=== PATIENT | female | born 1935 | race Caucasian/White ===

== ENCOUNTER 2017-01-27 15:05 | Inpatient (IN) | payer OTHER ==
[~2017-01-27] VITALS: Ht 160 cm; Wt 51.8 kg
[~2017-01-27 15:05] MED LIST: AMLODIPINE-BEN1 EAC4 PO; ASCORBIC ACID500 M3 PO; ASPIR-LOW81 MG PO; ATIVAN0.5 MG PO; Ascorbic Acid,Ester- PO; BACITRACIN28.4 GM TP; CARVEDILOL25 MG PO; Colace PO; DAILY VALUE1 EACH PO; Dulcolax PO; FUROSEMIDE20 MG PO; Folvite PO; KLOR-CON M2020 MEQ PO; LEVAQUIN250 MG PO; LISINOPRIL40 MG PO; Lopressor PO; MULTIVITAMIN1 EAC2 PO; NATURAL CALCIUM PO; Oscal 500 w/Vitamin PO; PANTOPRAZOLE SO40 MG PO; Phenergan PO; Protonix PO; Reglan PO; SKELAXIN800 MG PO; SYSTANE 0.3-0.1 EACH BOTH EYES; Senokot,Sennagen PO; Slow-Mag,Mag Delay PO; THERAGRAN1 TABLET PO; Tylenol Regular Stre PO; ULTRAM50 MG PO; VALSARTAN160 MG PO; Vicodin,Norco 5/325 PO; Zestril,Prinivil PO
[2017-01-27] MEDS ORDERED: DOXYCYCLINE HY100 MG PO ×2 (16:08→19:44)
[2017-01-27] MEDS ORDERED: BENZONATATE200 MG PO (16:09)
[2017-01-27 16:25] LABS: HEMATOCRIT 33.9 % (36.0-46.0); MCH 29.9 PG (29.0-34.0); MCHC 33.9 G/DL (30.0-36.0); MCV 88.1 FL (83-99); MEAN PLAT.VOLUME 11.8 uM^3 (9.5-12.4); PLATELET COUNT 135 K/uL (156-360); RBC DIS.WIDTH-CV 12.6 % (11.8-14.6); RBC DIS.WIDTH-SD 39.6 % (39-53); RED BLOOD COUNT 3.85 M/uL (3.80-5.20); WHITE BLOOD COUNT 5.4 K/uL (4.1-10.2)
[2017-01-27 16:33] LABS: CHLORIDE 93 mEq/L (99-109); POTASSIUM 3.8 mEq/L (3.7-5.4); SODIUM 126 mEq/L (136-147)
[2017-01-27 16:34] LABS: GLUCOSE 120 mg/dL (70-99)
[2017-01-27 16:36] LABS: ANION GAP 9 MEQ/L (2-14)
[2017-01-27 16:38] LABS: GFR ESTIMATE (CALCULATED) > 59 mL/min/
[2017-01-27 16:39] LABS: UREA NITROGEN (BUN) 12 mg/dL (9-23)
[2017-01-27 20:20] VITALS: BP 155/74
[2017-01-27 23:44] VITALS: BP 128/60
[2017-01-28 00:45] VITALS: BP 128/60
[2017-01-28 04:02] VITALS: BP 129/65
[2017-01-28 07:13] LABS: HEMATOCRIT 33.4 % (36.0-46.0); MCH 30.3 PG (29.0-34.0); MCHC 34.4 G/DL (30.0-36.0); MCV 87.9 FL (83-99); MEAN PLAT.VOLUME 12.1 uM^3 (9.5-12.4); PLATELET COUNT 139 K/uL (156-360); RBC DIS.WIDTH-CV 13.1 % (11.8-14.6); RBC DIS.WIDTH-SD 42.5 % (39-53); WHITE BLOOD COUNT 4.7 K/uL (4.1-10.2)
[2017-01-28 07:33] LABS: EOSINOPHIL (%) 0.2 % (0-5); LYMPHOCYTE COUNT 0.4 K/uL (1.0-2.8); MONOCYTE (%) 14.1 % (3-12); MONOCYTE COUNT 0.7 K/uL (0-0.8); NEUTROPHIL (%) 77.8 % (45-76); NEUTROPHIL COUNT 3.6 K/uL (1.8-6.4)
[2017-01-28 07:37] LABS: ANION GAP 8 MEQ/L (2-14); CHLORIDE 93 MEQ/L (99-109); GFR ESTIMATE (CALCULATED) > 59 mL/min/; GLUCOSE 102 mg/dL (70-99); POTASSIUM 3.8 MEQ/L (3.7-5.4); SAMPLE HEMOLYSIS CHECK 0; SAMPLE ICTERIC CHECK 0; SAMPLE LIPEMIA CHECK 0; SODIUM 128 MEQ/L (136-147); UREA NITROGEN (BUN) 10 mg/dL (9-23)
[2017-01-28 07:44] VITALS: BP 131/64
[2017-01-28 12:41] VITALS: BP 115/48
[2017-01-28 15:03] VITALS: BP 118/56
[2017-01-28 21:30] VITALS: BP 136/65
[2017-01-29] VITALS: BP 122/60
[2017-01-29 06:24] LABS: HEMATOCRIT 36.1 % (36.0-46.0); MCH 30.2 PG (29.0-34.0); MCHC 34.1 G/DL (30.0-36.0); MCV 88.7 FL (83-99); MEAN PLAT.VOLUME 12.5 uM^3 (9.5-12.4); PLATELET COUNT 152 K/uL (156-360); RBC DIS.WIDTH-CV 13.2 % (11.8-14.6); RBC DIS.WIDTH-SD 42.4 % (39-53); RED BLOOD COUNT 4.07 M/uL (3.80-5.20); WHITE BLOOD COUNT 5.6 K/uL (4.1-10.2)
[2017-01-29 06:51] LABS: ANION GAP 10 MEQ/L (2-14); CHLORIDE 91 MEQ/L (99-109); GFR ESTIMATE (CALCULATED) > 59 mL/min/; POTASSIUM 4.3 MEQ/L (3.7-5.4); SAMPLE HEMOLYSIS CHECK 0; SAMPLE ICTERIC CHECK 0; SAMPLE LIPEMIA CHECK 0; SODIUM 127 MEQ/L (136-147); UREA NITROGEN (BUN) 12 mg/dL (9-23)
[2017-01-29 07:15] LABS: GLUCOSE 203 mg/dL (70-99)
[2017-01-29 07:28] LABS: INTERNAL CONTROL VALID? YES
[2017-01-29 07:34] VITALS: BP 149/70
[2017-01-29 12:45] VITALS: BP 130/60
[2017-01-29 14:49] VITALS: BP 144/67
[2017-01-29 19:41] VITALS: BP 115/58
[2017-01-30] VITALS: BP 110/56
[2017-01-30 04:09] VITALS: BP 114/63
[2017-01-30 07:13] LABS: HEMATOCRIT 37.3 % (36.0-46.0); MCH 28.5 PG (29.0-34.0); MCHC 32.4 G/DL (30.0-36.0); MEAN PLAT.VOLUME 11.7 uM^3 (9.5-12.4); PLATELET COUNT 165 K/uL (156-360); RBC DIS.WIDTH-CV 13.3 % (11.8-14.6); RBC DIS.WIDTH-SD 42.7 % (39-53); RED BLOOD COUNT 4.24 M/uL (3.80-5.20); WHITE BLOOD COUNT 4.3 K/uL (4.1-10.2)
[2017-01-30 07:54] VITALS: BP 128/64
[2017-01-30] MEDS ORDERED: LEVAQUIN500 MG PO ×2 (08:02→11:29)
[2017-01-30 08:14] LABS: ANION GAP 8 MEQ/L (2-14); CHLORIDE 92 MEQ/L (99-109); GFR ESTIMATE (CALCULATED) > 59 mL/min/; POTASSIUM 3.7 MEQ/L (3.7-5.4); SAMPLE HEMOLYSIS CHECK 0; SAMPLE ICTERIC CHECK 0; SAMPLE LIPEMIA CHECK 0; SODIUM 129 MEQ/L (136-147); UREA NITROGEN (BUN) 11 mg/dL (9-23)
[2017-01-30 08:18] LABS: GLUCOSE 97 mg/dL (70-99)
[2017-01-30] MEDS ORDERED: FUROSEMIDE20 MG PO (09:41)
[2017-01-30 10:52] VITALS: BP 121/60
[2017-01-30 11:25] VITALS: BP 126/64
[2017-01-30 14:49] VITALS: BP 127/63
== END 2017-01-30 15:44 | disposition home health service (06) | DRG 194 ==
LOC: EME 15:05 → EDOF 18:53 → 5SOUTH 18:53
PROVIDERS: Internal Medicine
DX: J18.9 Pneumonia, unspecified organism (principal); E87.1 Hypo-osmolality and hyponatremia; I42.9 Cardiomyopathy, unspecified; I50.22 Chronic systolic (congestive) heart failure; J90 Pleural effusion, not elsewhere classified; J21.9 Acute bronchiolitis, unspecified; R09.02 Hypoxemia; I10 Essential (primary) hypertension; K21.9 Gastro-esophageal reflux disease without esophagitis; I48.0 Paroxysmal atrial fibrillation; I27.2 Other secondary pulmonary hypertension; I25.10 Atherosclerotic heart disease of native coronary artery without angina pectoris; Z80.0 Family history of malignant neoplasm of digestive organs; Z83.3 Family history of diabetes mellitus; Z88.2 Allergy status to sulfonamides; Z88.3 Allergy status to other anti-infective agents; Z68.20 Body mass index [BMI] 20.0-20.9, adult
CPT/HCPCS: 71010; 71020; 80048; 83880; 83930; 83935; 84300; 85025; 85027; 87070; 87205; 87449; 93005; 94640; 94640 76; 94799; 97530 GO; 99202; 99281; 99285; J0456; J0696; J1644; J2060; J7050

== ENCOUNTER 2017-06-28 07:09 | Emergency (ER) | payer OTHER ==
[~2017-06-28] VITALS: Ht 160 cm; Wt 50.9 kg
[~2017-06-28 07:09] MED LIST changes: +BENZONATATE200 MG PO; +DOXYCYCLINE HY100 MG PO; +LEVAQUIN500 MG PO
[2017-06-28 07:56] LABS: EOSINOPHIL (%) 0.5 % (0-5); HEMATOCRIT 36.9 % (36.0-46.0); IMMATURE GRANULOCYTE (%) 0.3 % (0.0-0.7); INSTRUMENT ABS NEUTROPHIL CT 5.1 K/uL; LYMPHOCYTE COUNT 0.5 K/uL (1.0-2.8); MCHC 33.1 G/DL (30.0-36.0); MCV 90.7 FL (83-99); MEAN PLAT.VOLUME 11.4 uM^3 (9.5-12.4); MONOCYTE (%) 7.4 % (3-12); MONOCYTE COUNT 0.5 K/uL (0-0.8); NEUTROPHIL (%) 83.3 % (45-76); NEUTROPHIL COUNT 5.1 K/uL (1.8-6.4); PLATELET COUNT 154 K/uL (156-360); RBC DIS.WIDTH-CV 12.9 % (11.8-14.6); RBC DIS.WIDTH-SD 42.7 % (39-53); RED BLOOD COUNT 4.07 M/uL (3.80-5.20); WHITE BLOOD COUNT 6.1 K/uL (4.1-10.2)
[2017-06-28 08:20] LABS: ANION GAP 7 MEQ/L (2-14); CHLORIDE 101 MEQ/L (99-109); POTASSIUM 3.6 MEQ/L (3.7-5.4); SAMPLE HEMOLYSIS CHECK 0; SAMPLE ICTERIC CHECK 0; SAMPLE LIPEMIA CHECK 0; SODIUM 134 MEQ/L (136-147)
[2017-06-28 08:26] LABS: GFR ESTIMATE (CALCULATED) > 59 mL/min/; GLUCOSE 123 mg/dL (70-99); UREA NITROGEN (BUN) 17 mg/dL (9-23)
[2017-06-28 08:31] LABS: TROP-I INTERPRETATION NEGATIVE; TROPONIN-I < 0.01 ng/mL (0.0-0.30)
[2017-06-28] MEDS ORDERED: FLUTICASONE PRO16 GM BOTH NARES (09:07)
[2017-06-28] MEDS ORDERED: LASIX20 MG PO (10:14)
[2017-06-28] MEDS ORDERED: ZOFRAN ODT4 MG PO (12:17)
[2017-06-28 12:44] VITALS: BP 124/52
== END 2017-06-28 12:46 | disposition home or self-care (01) ==
LOC: EME → EDBD 07:09 → EME 12:46
PROVIDERS: Emergency Medicine
DX: R42 Dizziness and giddiness (principal); I11.0 Hypertensive heart disease with heart failure; I50.9 Heart failure, unspecified; K21.9 Gastro-esophageal reflux disease without esophagitis
CPT/HCPCS: 70450; 71010; 80048; 83880; 84484; 85025; 93005; 99281; 99285; J2405; J7030